=== PATIENT | female | born 1985 | race Caucasian/White ===

== ENCOUNTER 2022-11-09 15:01 | Outpatient (CLI) | payer OTHER, SELFPAY ==
--- NOTE | ~2022-11-09 | MR_ITS ---
EXAMINATION: MR knee LT wo con DATE: 11/09/2022 15:43 INDICATION: Acute onset left knee pain TECHNIQUE: Magnetic resonance imaging (MRI) of the left knee was performed without intravenous contra st. Sequences included coronal PD-weighted FSE, coronal PD-weighted FS FSE, sagittal T2-weighted FSE , sagittal PD-weighted FS FSE and axial PD weighted fat saturated FSE. COMPARISON: None. FINDINGS: Medial compartment: Medial meniscus is normal. Articular cartilage is normal. Lateral compartment: Lateral meniscus is normal. Deep chondral ulceration with underlying cortical irregularity and mild e vanna-like and cystlike changes along the central weightbearing lateral femoral condyle. Patellofemoral compartment: Articular cartilage is normal. Ligaments and tendons: Anterior and posterior cruciate ligaments are normal. The medial collateral ligament and fibular jon ateral ligament complex are normal. The extensor mechanism is normal. The visualized medial and later al hamstring tendons as well as the iliotibial band are normal. Fluid: Small to moderate-sized left knee joint effusion. No loose osteochondral bodies identified. Osseous/other: There is prominent marrow edema along the anterior lateral nonarticular surface of the lateral femora l condyle and along the inferomedial margin of the patella without evident fracture lines consistent with bone contusions related to a patellar dislocation/relocation injury. Small intraosseous ganglion cyst at the posterior medial femoral condyle near the insertion of the of the medial collateral liga ment and the distal abductor longus tendon. No fracture or pathologic marrow replacing process. IMPRESSION: 1. Bone contusions at the patella and lateral femoral condyle consistent with a lateral patellar disl ocation/relocation injury without evident fracture or retinacular tear. 2. 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 Reviewed, dictated and finalized at location A. IMPRESSION: 1. Bone contusions at the patella and lateral femoral condyle consistent with a lateral patellar dislocation/relocation injury without evident fracture or ret inacular tear. 2. Small region of high-grade chondromalacia along the central weightbearing la teral femoral condyle, given age and location could consider sequela of chronic osteochondral lesion.
== END 2022-11-09 15:02 | disposition home or self-care (01) ==
PROVIDERS: PCP Family Medicine; Visit Provider Orthopaedic Surgery
DX: S80.02XA Contusion of left knee, initial encounter (principal); X58.XXXA Exposure to other specified factors, initial encounter
CPT/HCPCS: 73721